=== PATIENT | male | born 1975 | race Caucasian/White ===

== ENCOUNTER 2020-12-14 15:24 | Inpatient (IN) | payer OTHER ==
[~2020-12-14] VITALS: Ht 188 cm; Wt 85.3 kg
[2020-12-14] MEDS ORDERED: FOLI-130 PO (18:03)
[2020-12-14] MEDS ORDERED: AMLO-257 PO (18:03)
[2020-12-14] MEDS ORDERED: THIA100T80 PO (18:03)
[2020-12-14] MEDS ORDERED: LORazepam 2 MG TABLET PO PRN (20:45)
[2020-12-14] MEDS ORDERED: ZOLPIDEM TARTRATE 10 MG TABLET PO PRN (20:45)
[2020-12-14] MEDS ORDERED: HALOPERIDOL 5 MG TABLET PO PRN (20:45)
[2020-12-14 21:00] VITALS: BP 141/93
[2020-12-14 21:17] VITALS: BP 141/93
[2020-12-14] MEDS ORDERED: DIAZEPAM 10 MG TABLET PO PRN (21:30)
[2020-12-14 22:01] VITALS: BP 150/90
[2020-12-14] MEDS ORDERED: PNEUMOCOCCAL VACCINE POLYVALENT 0.5 ML VIAL [PPSV23] IM. ONE (22:15)
[2020-12-15] VITALS (10 sets, daily range): BP systolic 123–142; BP diastolic 74–100
[2020-12-15] MEDS ORDERED: DIAZEPAM 10 MG TABLET PO PRN (07:00)
[2020-12-15 07:13] LABS: BASOPHILS % (AUTO) 0.5 % (0.0-2.0); EOSINOPHILS % (AUTO) 1.7 % (1.0-6.0); HEMATOCRIT 44.2 % (41-53); HEMOGLOBIN 15.1 g/dL (13.5-17.5); LYMPHOCYTES # (AUTO) 1.5 K/uL (1.0-4.8); MEAN CORPUSCULAR HEMOGLOBIN 32.6 pg (26.0-34.0); MEAN CORPUSCULAR HGB CONC 34.1 G/dL (31.0-37.0); MEAN CORPUSCULAR VOLUME 96 fL (80-100); MONOCYTES # (AUTO) 0.7 K/uL (0.1-1.0); NEUTROPHILS # (AUTO) 4.2 K/uL (1.8-7.7); NEUTROPHILS % (AUTO) 63.8 % (40.0-70.0); PLATELET COUNT (AUTO) 244 K/uL (150-450); RED BLOOD CELL COUNT(AUTO) 4.62 MIL/uL (4.50-5.90); RED CELL DISTRIBUTION WIDTH 14.6 % (11.5-14.5)
[2020-12-15 07:38] LABS: HEMOGLOBIN A1C 5.1 % (3.8-5.6)
[2020-12-15 08:05] LABS: ALANINE AMINOTRANSFERASE 35 U/L (12-78); ALKALINE PHOSPHATASE 82 U/L (46-116); ANION GAP 12 mmol/L (8-16); ASPARTATE AMINOTRANSFERASE 32 U/L (15-37); BILIRUBIN,TOTAL 1.2 mg/dL (0.1-1.0); CALCIUM, TOTAL 9.1 mg/dL (8.8-10.5); CARBON DIOXIDE 27 mmol/L (22-29); CHLORIDE 102 mmol/L (98-107); CHOL/HDL RATIO 3.2 (4.2-7.3); CHOLESTEROL 240 mg/dL (131-200); FREE T4 (FREE THYROXINE) 1.07 ng/dL (0.76-1.46); GLOMERULAR FILTR. RATE CALC > 60 mL/min (>60); GLUCOSE,RANDOM 93 mg/dL (70-110); HDL CHOLESTEROL 74 mg/dL (40-60); LDL CHOL (CALC.) 141 mg/dL (0-130); POTASSIUM 3.9 mmol/L (3.5-5.1); SODIUM SERUM 141 mmol/L (136-145); THYROID STIMULATING HORMONE 1.87 uIU/mL (0.36-3.74); TOTAL PROTEIN, SERUM 7.4 g/dL (6.4-8.2); TRIGLYCERIDES 127 mg/dL (15-150); UREA NITROGEN, BLOOD 10 mg/dL (7-18)
[2020-12-15] MEDS: AmLODIPine BESYLATE 5 MG TABLET PO SCH (08:32)
[2020-12-15] MEDS: DIAZEPAM 10 MG TABLET PO SCH ×4 (08:32→20:24)
[2020-12-15] MEDS ORDERED: MAGNESIUM HYDROXIDE SUSPENSION 30 ML UDCUP PO PRN (10:15)
[2020-12-15] MEDS ORDERED: DOCUSATE SODIUM 100 MG CAPSULE PO PRN (10:15)
[2020-12-15] MEDS ORDERED: CloNIDine HCL 0.1 MG TABLET PO PRN (10:15)
[2020-12-15] MEDS ORDERED: ONDANSETRON HCL 4 MG TABLET PO PRN (10:15)
[2020-12-15] MEDS ORDERED: GuaiFENesin/D-METHORPHAN [SUGAR-FREE] 200-20MG/10 ML SYRUP UDCUP PO PRN (10:15)
[2020-12-15] MEDS ORDERED: LOPERAMIDE HCL 2 MG CAPSULE PO PRN (10:15)
[2020-12-15] MEDS ORDERED: MAG HYDROX/AL HYDROX/SIMETH ES 30 ML SUSPENSION UDCUP PO PRN (10:15)
[2020-12-15] MEDS ORDERED: PETROLATUM,WHITE 28 GM JELLY TP PRN (10:15)
[2020-12-15] MEDS ORDERED: NICOTINE 14 MG/24 HOUR PATCH TD PRN (10:15)
[2020-12-15] MEDS ORDERED: IBUPROFEN 400 MG TABLET PO PRN (10:15)
[2020-12-15] MEDS ORDERED: ACETAMINOPHEN 325 MG TABLET PO PRN (10:15)
[2020-12-15] MEDS ORDERED: ALBUTEROL SULFATE HFA 90 MCG/PUFF 8 GM INHALER IH PRN (10:15)
[2020-12-16 00:35] VITALS: BP 132/83
[2020-12-16 03:52] VITALS: BP 132/83
[2020-12-16 08:11] VITALS: BP 140/97
[2020-12-16] MEDS: DIAZEPAM 10 MG TABLET PO SCH ×2 (08:13→13:08)
[2020-12-16] MEDS: AmLODIPine BESYLATE 5 MG TABLET PO SCH (08:13)
[2020-12-16 09:28] VITALS: BP 140/97
[2020-12-16 10:16] VITALS: BP 138/98
[2020-12-16 16:17] VITALS: BP 132/88
[2020-12-17] MEDS ORDERED: DIAZEPAM 5 MG TABLET PO PRN (07:00)
[2020-12-17 07:40] LABS: AMPHET/METH SCREEN,URINE NEGATIVE (NEGATIVE); BARBITURATE SCREEN, URINE NEGATIVE (NEGATIVE); BENZODIAZEPINES SCREEN,URINE POSITIVE (NEGATIVE); CANNABINOID SCREEN,URINE POSITIVE (NEGATIVE); COCAINE SCREEN,URINE NEGATIVE (NEGATIVE); METHADONE SCREEN, URINE NEGATIVE (NEGATIVE); OPIATE SCREEN,URINE NEGATIVE (NEGATIVE)
[2020-12-17 07:46] LABS: PHENCYCLIDINE SCREEN,URINE NEGATIVE (NEGATIVE)
[2020-12-17 07:48] LABS: APPEARANCE,URINE CLEAR (CLEAR); BILIRUBIN,URINE NEGATIVE (NEGATIVE); GLUCOSE, URINE (UA) NEGATIVE (NEGATIVE); KETONES,URINE TRACE mg/dL (NEGATIVE); LEUKOCYTE ESTERASE ,URINE NEGATIVE (NEGATIVE); NITRATE,URINE NEGATIVE (NEGATIVE); OCCULT BLOOD,URINE NEGATIVE (NEGATIVE); PH,URINE 6.5 (5.0-8.0); PROTEIN,URINE NEGATIVE (NEGATIVE); UROBILINOGEN,URINE 0.2 mg/dL (<=1.0)
[2020-12-17] MEDS ORDERED: DIAZEPAM 5 MG TABLET PO SCH (09:00)
[2020-12-18] MEDS ORDERED: DIAZEPAM 5 MG TABLET PO PRN (07:00)
== END 2020-12-16 17:30 | disposition home or self-care (01) | DRG 881 ==
LOC: B2S 20:42
PROVIDERS: ADMIT Psychiatry & Neurology Child & Adolescent Psychiatry; ATTEND Psychiatry & Neurology Child & Adolescent Psychiatry
DX: F32.9 Major depressive disorder, single episode, unspecified (principal); F11.20 Opioid dependence, uncomplicated; F12.90 Cannabis use, unspecified, uncomplicated; F10.10 Alcohol abuse, uncomplicated; I10 Essential (primary) hypertension; Z20.822 Contact with and (suspected) exposure to COVID-19; R00.0 Tachycardia, unspecified
CPT/HCPCS: 80053; 80061; 80307; 81003; 83036; 84439; 84443; 85025